=== PATIENT | female | born 1980 | race Two or more races ===

== ENCOUNTER 2022-02-15 09:45 | Emergency (ER) | payer BC, OTHER ==
[~2022-02-15] VITALS: Ht 144.8 cm; Wt 77.7 kg
[~2022-02-15 09:45] MED LIST: FLUT16SP10 NS
[2022-02-15 10:38] LABS: CLARITY,URINE SLIGHTLY CLOUDY (Clear); COLOR,URINE YELLOW (Yellow); GLUCOSE, URINE >=1000 mg/dl (Neg); KETONES,URINE TRACE mg/dl (Neg); LEUKOCYTE ESTERASE ,URINE NEGATIVE (Neg); NITRITES, URINE NEGATIVE (Neg); OCCULT BLOOD,URINE NEGATIVE (Neg); PH,URINE 5.5 (4.8-8.0); PROTEIN,URINE NEGATIVE (Neg); UROBILINOGEN,URINE 0.2 E.U/dL (0.2-1.0)
[2022-02-15 10:42] LABS: URINE HCG NEGATIVE (NEG)
[2022-02-15 10:45] LABS: UA COLLECTION TYPE CLN CATCH MIDSTREAM
[2022-02-15 10:47] LABS: BACTERIA,URINE 1+ /HPF (Neg); MUCUS STRANDS MODERATE /LPF (Neg); RBC,URINE 0-2 /HPF (0-2); SQUAMOUS EPITHELIAL CELL,UR MANY /LPF (FEW); WBC,URINE 0-4 /HPF (0-4); YEAST FEW /HPF (NEGATIVE)
[2022-02-15 12:04] LABS: BASOPHILS % (AUTO) 0.5 % (0-1); EOSINOPHILS # (AUTO) 0.2 X10'3 (0-0.9); EOSINOPHILS % (AUTO) 2.2 % (0-6); HEMOGLOBIN 14.9 g/dl (12.0-16.0); LYMPHOCYTES # (AUTO) 2.7 X10'3 (1.1-4.8); MEAN CORPUSCULAR HGB CONC 33.1 g/dL (33.0-36.5); MEAN CORPUSCULAR VOLUME 84.6 FL (78-98); MEAN PLATELET VOLUME 11.7 FL (7.4-10.4); MONOCYTES # (AUTO) 0.4 X10'3 (0-0.9); MONOCYTES % (AUTO) 4.9 % (2-12); NEUTROPHILS # (AUTO) 5.6 X10'3 (1.8-7.7); NEUTROPHILS % (AUTO) 62.4 % (42-75); PLATELET COUNT 223 X10'3 (140-440); RED BLOOD COUNT 5.32 X10'6 (4.20-5.60)
[2022-02-15 12:19] LABS: ALANINE AMINOTRANSFERASE 65 U/L (12-78); ALBUMIN 3.9 G/DL (3.4-5.0); ALBUMIN/GLOBULIN RATIO 0.9 (1.1-1.5); ALKALINE PHOSPHATASE 129 IU/L (46-116); ANION GAP 7 (8-16); ASPARTATE AMINO TRANSFERASE 23 U/L (10-37); BILIRUBIN,TOTAL 0.4 MG/DL (0.1-1.0); BLOOD UREA NITROGEN 11 MG/DL (7-18); BUN/CREATININE RATIO 13.1 (6.6-38.0); CALCIUM 8.9 MG/DL (8.5-10.1); CHLORIDE 98 MMOL/L (99-107); CREATININE 0.84 MG/DL (0.40-0.90); LIPASE 161 U/L (73-393); POTASSIUM 4.4 MMOL/L (3.5-5.1); SODIUM 133 MMOL/L (135-145); TOTAL CARBON DIOXIDE 28.2 MMOL/L (24-32); TOTAL PROTEIN 8.4 G/DL (6.4-8.2); eGFR 75 ML/MIN
[2022-02-15 12:21] LABS: GLUCOSE 497 MG/DL (70-104)
[2022-02-15 13:33] LABS: LARGE PLATELETS FEW; PLATELET ESTIMATE NORMAL
[2022-02-15 14:35] VITALS: BP 124/63
[2022-02-15 15:43] LABS: HEMOGLOBIN A1C 11.3 % (4.5-6.2)
[2022-02-15] MEDS ORDERED: fluconazole 150mg tablet PO ONE (16:10)
[2022-02-15] MEDS ORDERED: metFORMIN 500mg tablet PO ONE (16:10)
[2022-02-15] MEDS ORDERED: METF-900 PO (16:14)
--- NOTE | 2022-02-15 19:00 | NUR ---
prescription had been transmitted when pt was discharged, pt called back to say that the pharmacy had not received it. prescription was called by myself to [facility] for Metformin ER 500 mg PO daily #30, no refills, per Dr Bernard
== END 2022-02-15 17:30 | disposition home or self-care (01) ==
LOC: ER 09:46
DX: E11.65 Type 2 diabetes mellitus with hyperglycemia (principal); R21 Rash and other nonspecific skin eruption; R53.1 Weakness; R06.02 Shortness of breath; Z87.891 Personal history of nicotine dependence; Z72.89 Other problems related to lifestyle; Z79.899 Other long term (current) drug therapy
CPT/HCPCS: 36415; 76830; 76856; 80053; 81001; 81025; 82948; 83036; 83690; 85008; 85025; 93976; 99284

== ENCOUNTER 2022-03-18 15:27 | Emergency (ER) | payer OTHER ==
[~2022-03-18] VITALS: Ht 144.8 cm; Wt 75.1 kg
[~2022-03-18 15:27] MED LIST changes: +METF-900 PO
[2022-03-18 15:43] VITALS: BP 106/70
[2022-03-18] MEDS ORDERED: metFORMIN 500mg tablet PO ONE (18:25)
[2022-03-18] MEDS ORDERED: fluconazole 100mg tablet PO ONE (18:25)
[2022-03-18] MEDS ORDERED: METF-516 PO (18:27)
--- NOTE | 2022-03-18 18:57 | NUR ---
PT REFUSED PO MED. PT STATES SHE NEEDED TO LEAVE AND DIDNT WANT TO WAIT
== END 2022-03-18 18:58 | disposition home or self-care (01) ==
LOC: ER 15:28
DX: E11.65 Type 2 diabetes mellitus with hyperglycemia (principal); B37.9 Candidiasis, unspecified; Z76.0 Encounter for issue of repeat prescription; Z79.899 Other long term (current) drug therapy
CPT/HCPCS: 82948; 99283